=== PATIENT | male | born 1975 | race Caucasian/White ===

== ENCOUNTER 2018-08-01 20:14 | Emergency (ER) | payer OTHER, SELFPAY ==
[2018-08-01 20:15] VITALS: BP 129/90; PULSE 75; RESP 16; TEMP 36.6; O2SAT 98; BMI 30.2
--- NOTE | 2018-08-01 20:39 | EKG12_ITS ---
Test Reason : LOWER EXTREMITY PAIN Blood Pressure : / mmHG Vent. Rate : 071 BPM Atrial Rate : 071 BPM P-R Int : 194 ms QRS Dur : 104 ms QT Int : 388 ms P-R-T Axes : 010 028 018 degrees QTc Int : 421 ms Normal sinus rhythm Normal ECG Confirmed by CHOLO LEAVITT MD ([id number]), scientific editor AKILA MEJÍA ([id number] on 08/04/2018 10:57:27 AM Referred By: GAYATRI Confirmed By:CHOLO LEAVITT MD
--- NOTE | 2018-08-01 20:40 | CT_ITS ---
STUDY: CTA CHEST REASON FOR EXAM: Male, 43 years old. Bilateral lower extremity pain. Lower abdominal pain. Groin pain. RADIATION DOSAGE (If Supplied By Facility): CTDIvol = ( 17.15 ) mGy, DLP = ( 1572.24 ) mGycm TECHNIQUE: The examination was performed with the intravenous administration of 100ml ml of Isovue 370 contrast material. Post-processing of the angiographic images was performed, with multiplanar reformation and 3D reconstruction. Individualized dose optimization techniques were used for this CT. COMPARISON: None. FINDINGS: CTA CHEST: The heart and pericardium are normal. The aorta is normal in caliber, with no aneurysm or dissection. There is no evidence of pulmonary embolus. There is no mediastinal mass, adenopathy, or hematoma. There is no pleural effusion or pneumothorax. There is no pulmonary consolidation. Lung chowdary are clear. There is no osseous abnormality. CTA ABDOMEN PELVIS: The liver, spleen, pancreas, adrenal glands, and kidneys are unremarkable. Gallbladder is unremarkable. Aorta and iliac arteries are normal, with no aneurysm or dissection. There is no free fluid, free air, or organized collection. Bladder is unremarkable. There is no bowel obstruction or inflammatory change. Normal appendix. There is no osseous abnormality. No evidence of fracture. CT/CTA Chest W/WO Contrast IMPRESSION: Negative enhanced CT of the chest, abdomen and pelvis. Electronically Signed: Rachele Lantigua MD at 22:36 EST Tel , Service support ,
--- NOTE | 2018-08-01 20:41 | CT_ITS ---
CTA ABDOMEN PELVIS WITH CONTRAST: REASON FOR EXAM: Male, 43 years old. Bilateral lower extremity pain. Lower abdominal pain. Groin pain. RADIATION DOSAGE (If Supplied By Facility): CTDIvol = ( 17.15 ) mGy, DLP = ( 1572.24 ) mGycm TECHNIQUE: The examination was performed with the intravenous administration of 100ml ml of Isovue 370 contrast material. Post-processing of the angiographic images was performed, with multiplanar reformation and 3D reconstruction. Individualized dose optimization techniques were used for this CT. COMPARISON: None. FINDINGS: CTA CHEST: The heart and pericardium are normal. The aorta is normal in caliber, with no aneurysm or dissection. There is no evidence of pulmonary embolus. There is no mediastinal mass, adenopathy, or hematoma. There is no pleural effusion or pneumothorax. There is no pulmonary consolidation. Lung chowdary are clear. There is no osseous abnormality. CTA ABDOMEN PELVIS: The liver, spleen, pancreas, adrenal glands, and kidneys are unremarkable. Gallbladder is unremarkable. Aorta and iliac arteries are normal, with no aneurysm or dissection. There is no free fluid, free air, or organized collection. Bladder is unremarkable. There is no bowel obstruction or inflammatory change. Normal appendix. There is no osseous abnormality. No evidence of fracture. CT/CT ANGIO ABD&PEL W/O&W/DYE IMPRESSION: Negative enhanced CT of the chest, abdomen and pelvis. Electronically Signed: Rachele Lantigua MD at 22:48 EST Tel , Service support ,
[2018-08-01] MEDS: Ondansetron 4 MG/2 ML Vial IV (21:27)
[2018-08-01] MEDS: 0.9% Normal Saline 1,000 ML 1000 ML IV (21:27)
[2018-08-01] MEDS: Morphine 4 MG/ML Syringe IV (21:29)
[2018-08-01 21:44] LABS: Absolute Lymphocyte Count 1.43 X10^3/ul (0.83-4.51); Absolute Neutrophil Count 5.1 X10^3/uL (2.0-7.7); Basophil# 0.03 X10^3/uL; Basophil% 0.4 % (0-1); Hematocrit 43.8 % (40-54); Hemoglobin 14.2 g/dl (13.0-16.5); Lymphocyte # 1.43 X10^3/ul (4.0); Lymphocyte % 18.9 % (19-41); Mean Corp Hgb Conc 32.4 g/gl (32-36); Mean Corpuscular Hgb 30.6 pg (27.0-32.0); Mean Corpuscular Volume 94.4 fL (80-94); Mean Platelet Vol. 11.6 fl (6.2-12.0); Monocyte# 0.65 X10^3/uL; Monocyte% 8.6 % (0-10); Neutrophil # 5.13 X10^3/uL (2.7-7.7); POSITIVE COUNT NO; POSITIVE DIFFERENTIAL NO; POSITIVE MORPHOLOGY NO; Platelet Count 202 K/mm3 (150-450); RBC Distribution Width CV 13.8 % (11.6-14.6); RBC Distribution Width SD 47.6 fl (35.1-43.9); Red Blood Count 4.64 M/mm3 (4.6-6.2); White Blood Count 7.6 K/mm3 (4.4-11.0)
[2018-08-01 21:55] LABS: Anion Gap 6 (5-15); BUN 17 mg/dL (7-18); BUN/Creat Ratio 17.2 RATIO (10-20); Calcium,Total 8.4 mg/dL (8.5-10.1); Chloride 104 mmol/L (98-107); Creatinine, Serum 0.99 mg/dL (0.70-1.30); D-Dimer Quantitative (DVT/PE) 0.27 FEU/ug/m (0.27-0.49); EST Glomerular Filtration Rate 88 mL/min (>60); Est Glom Filt Rate - Afr Amer 106 mL/min (>60); Estimated Creatinine Clearance 95.22 ml/min; Glucose 95 mg/dL (74-106); Potassium 3.8 mmol/L (3.5-5.1); Sodium Level 140 mmol/L (136-145)
[2018-08-01 22:04] LABS: Lactic Acid 0.8 mmol/L (0.4-2.0)
[2018-08-01 22:22] VITALS: BP 126/75; PULSE 65; RESP 12; O2SAT 99
[2018-08-01 22:23] LABS: Bacteria 0 SEEN /hpf (None Seen); Mucous, Urine 0 SEEN /hpf (<or=2+); Red Blood Cells-Urine 0 SEEN /hpf (0-5); Squamous Epithelial Cells - UA 0 SEEN /hpf (0-5); White Blood Cells 0 SEEN /hpf (0-5)
[2018-08-01] MEDS: 0.9% Normal Saline 1,000 ML 150 ML IV (22:23)
[2018-08-01 22:33] LABS: Color, Urine Yellow (Yellow); Glucose, Dipstick Normal (Normal); Ketone-Dipstick Negative (Negative); Leukocyte Esterase-Dipstick Negative /ul (Negative); Nitrite-Dipstick Negative (Negative); Occult Blood-Urine 10 /ul (Negative); Protein-Dipstick Negative (Negative); Urine Bilirubin Dipstick Negative (Negative); Urine Clarity Clear (Clear); Urine Urobilinogen Normal (Normal)
--- NOTE | 2018-08-01 23:15 | ED.VISSUMM ---
- ER Visit Summary Date of Service: 08/01/18 Chief Complaint: Bilateral leg pain History of Present Illness: The patient is a 43 M who reports having intermittent mid abdominal pain for a month or more. He had intermittent right testicular pain for the past month. He denies pain in those areas currently. He presents tonight with pain and spasms to both legs. He does report some mild back pain. He has not had any specific injury. Past history significant for asthma, hypertension, anxiety. Physical Examination: Vital signs are unremarkable. Patient's lying in bed. He appears uncomfortable. Head neck examination is normal. Heart is regular rate and rhythm. Lungs sounds are clear. Abdomen is soft and nontender. Hypoactive bowel sounds are noted. No masses are noted. Lower extreme examination was mild muscular tenderness throughout the bilateral thighs. He has present bilateral distal pulses. There is no edema. Normal skin coloration is noted. He has good range of motion of all joints. Test Results: EKG is sinus at 71 with no sign of acute ischemia. CBC and chemistry studies normal. Urinalysis normal. Lactate and d-dimer are both normal. CTA of the chest, abdomen, pelvis were obtained to rule out dissection. These are read as normal. Emergency Department Course and Treatment: Patient was given morphine, Zofran, and IV fluids. On repeat evaluation he is resting. He does report some continued pain in his legs, but overall improved. Test results were discussed with patient as well as family at bedside. He is given a prescription for oxycodone and Flexeril. He is to follow with his primary care physician next week and return to the ER if symptoms worsen or there are any new concerns arise. He voices understanding and agreement. Treatment Plan: [] Disposition: Discharge Impression: Muscle spasms bilateral legs This note was generated with [employer] dictation software. It may contain incorrect words, spelling, and punctuation that were not noted in review of the chart prior to signing ED Disposition - Plan for ED Patient: Disposition: Home or Assisted Living Chief Complaint: Lower Extremity Injury Instructions: ED Muscle Pain Leg Cramps Prescriptions: Oxycodone HCl/Acetaminophen [Percocet 5/325] 1 tablet PO Q6H PRN PRN 3 Days #12 tablet PRN Reason: Pain Cyclobenzaprine [Flexeril] 10 mg PO TID PRN #20 tablet PRN Reason: Muscle Spasm Referrals: Harley Paris MD [Primary Care Provider] - 5-7 Days
--- NOTE | 2018-08-01 23:18 | DCINST.ED_ITS ---
ED Disposition - Plan for ED Patient: Disposition: Home or Assisted Living Chief Complaint: Lower Extremity Injury Instructions: ED Muscle Pain Leg Cramps Prescriptions: Oxycodone HCl/Acetaminophen [Percocet 5/325] 1 tablet PO Q6H PRN PRN 3 Days #12 tablet PRN Reason: Pain Cyclobenzaprine [Flexeril] 10 mg PO TID PRN #20 tablet PRN Reason: Muscle Spasm Referrals: Harley Paris MD [Primary Care Provider] - 5-7 Days
[2018-08-01 23:22] VITALS: BP 113/70; PULSE 66; RESP 12; O2SAT 95
[2018-08-01] MEDS: oxyCODONE 5 MG Tablet PO (23:36)
== END 2018-08-01 23:43 | disposition home or self-care (01) ==
PROVIDERS: Emergency Provider Emergency Medicine; Family Provider Family Medicine; PCP Family Medicine
DX: M62.838 Other muscle spasm (principal); F41.9 Anxiety disorder, unspecified; I10 Essential (primary) hypertension; Z72.0 Tobacco use; Z79.899 Other long term (current) drug therapy
CPT/HCPCS: 71275; 74174; 80048; 81001; 83605; 85025; 85379; 93005; 96361; 96374; 96375; 99284; J7030; Q9967; A4216; J2405

== ENCOUNTER 2019-09-19 13:15 | Emergency (ER) | payer OTHER, SELFPAY ==
[2019-09-19 13:16] VITALS: BP 122/27; PULSE 65; RESP 14; TEMP 36.7; O2SAT 97; BMI 31.5
--- NOTE | 2019-09-19 13:27 | RAD_ITS ---
STUDY: X-RAY - LEFT HAND REASON FOR EXAM: Male, 44 years old. laceration between middle and fourth fingers at base of digits TECHNIQUE: 3 view(s) of the hand. COMPARISON: None. FINDINGS: Normal radiocarpal articulation. Normal distal radioulnar joint. Normal visualized carpal bones. Normal carpal articulations Normal carpometacarpal articulation of the thumb. Normal second through fifth carpometacarpal joints. Normal metacarpi. Normal metacarpophalangeal joint of the thumb. Normal interphalangeal joint of the thumb. Normal proximal and distal phalanges of the thumb. Normal metacarpophalangeal joints of the second through fifth fingers. Normal proximal and distal interphalangeal joints of the second through fifth fingers. Normal phalanges of the second through fifth fingers. There is no acute fracture. There is soft tissue injury. There is no foreign body. RAD/Hand Min 3 Views IMPRESSION: Soft tissue injury. No fracture or radiopaque foreign body. Electronically Signed: Brando Gupta MD at 14:25 EST , Service support ,
--- NOTE | 2019-09-19 13:28 | ED.DCSUM_ITS ---
- ER Visit Summary Date of Service: 09/19/19 Chief Complaint: Left hand laceration History of Present Illness: The patient is a 44 M who sustained a left hand laceration about an hour ago. He states that struck his hand between the third and fourth finger. He has a laceration in the webspace between these fingers. He has pain that is worse with movement. His last tetanus is unknown. He denies any other injuries. Physical Examination: Vital signs reviewed. Left hand exam reveals some tenderness to the third and fourth digits on the left hand. He has painful range of motion. There is a 2 cm laceration in the webspace between the third and fourth fingers. Minimal bleeding at this time. Test Results: Left hand x-ray interpreted by myself reveals no evidence of fracture Emergency Department Course and Treatment: The patient's tetanus was updated. The laceration was repaired with 4, 4-0 nylon sutures. He will have these out in 7 to 10 days. He will keep this area clean and dry. Treatment Plan: [] Disposition: Discharge Impression: Left hand laceration, 2 cm Laceration repair This note was generated with [employer] dictation software. It may contain incorrect words, spelling, and punctuation that were not noted in review of the chart prior to signing ED Disposition - Plan for ED Patient: Disposition: Home or Assisted Living Instructions: LACERATION, All Referrals: Stephanie Agosto DO [Primary Care Provider] -
[2019-09-19] MEDS: Diphth,Pertuss(Acell),Tet Vac 0.5 ML Vial IM (13:37)
[2019-09-19 14:06] VITALS: RESP 16
== END 2019-09-19 14:07 | disposition home or self-care (01) ==
LOC: ED 13:59
PROVIDERS: Emergency Provider Emergency Medicine; Family Provider Family Medicine; PCP Internal Medicine
DX: S61.412A Laceration without foreign body of left hand, initial encounter (principal); W22.8XXA Striking against or struck by other objects, initial encounter; Y93.9 Activity, unspecified; I10 Essential (primary) hypertension; F32.9 Major depressive disorder, single episode, unspecified; Z72.0 Tobacco use
CPT/HCPCS: 12001; 73130; 90471; 90715; 99284

== ENCOUNTER → 2020-02-23 13:33 | Outpatient (REF) | payer SELFPAY ==
--- NOTE | 2020-02-23 13:41 | CT_ITS ---
STUDY: CARDIAC CALCIUM SCORING - CT CHEST- ADDENDUM REASON FOR EXAM: Assess pulmonary parenchyma and mediastinal structures. RADIATION DOSAGE (If Supplied By Facility): CTDIvol = ( 12.19 ) mGy, DLP = ( 195.04 ) mGycm Individualized dose optimization techniques were used for this CT. ? TECHNIQUE: Axial non-enhanced images were acquired through the heart for the sole purpose of measuring coronary artery calcium. A field of view limited from the base of the heart to the upper abdomen was reviewed to assess the lung parenchyma and soft tissues. COMPARISON: None. FINDINGS: The parenchymal windows with limited field of view show no signs of an acute infiltrate or pulmonary mass. There are no effusions. The visualized segments of the primary bronchi are clear. The mediastinal windows with limited [id number] show no signs of hilar or mediastinal adenopathy. There is no discrete chest wall mass. The visualized segments of the upper abdominal viscera are unremarkable. CT/Limited Chest CT w/CCTA IMPRESSION: No acute process or pulmonary mass. Electronically Signed: Juliocesar Tao MD at 19:12 EDT , Service support ,
[2020-02-23 13:57] VITALS: BP 127/64; PULSE 56; RESP 16; O2SAT 97; BMI 29.7
--- NOTE | 2020-02-23 14:35 | CA.SCORE ---
Calcium Scoring Date of Study:: 02/23/20 Coronary Calcium Scoring: High-resolution Computed Tomographic imaging of the chest was performed on 02/23/2020 with particular attention paid to the coronary arteries. Images from the examination were analyzed for the presence and extent of coronary artery calcification , using coronary calcium quantification software. The patient tolerated the procedure well and there were no complications. The results of the coronary calcification analysis are provided below. - Findings Left Main (LM): 0 Left Anterior Descending (LAD): 0 Left Circumflex (LCX): 0 Right Coronary Artery (RCA): 15.1 Total Agatston Score: 15.1 Percentile Ranking: Percentile ranking: According to pre-published reference information between 50% and 75% of people of the same gender/similar age had the same/lower scores. Calcium Scoring Interpretation: 0 No identifiable atherosclerotic plaque. Very low cardiovascular disease risk. <5% chance of presence coronary artery disease A Negative Examination 1-10 Minimal Plaque burden. Significant coronary artery disease very unlikely. 11-100 Mild plaque burden. Likely mild or minimal coronary atherosclerosis. 101-400 Moderate plaque burden Moderate non-obstructive coronary artery disease highly likely. Over 400 Extensive plaque burden. High likelihood of at least one significant coronary stenosis (>50% diameter) Calcium Score: 11 - 100 Likely mild or minimal coronary stenosis - Continue cardiovascular risk factor evaluation as deemed appropriate.
== END ==
LOC: CT 13:33
PROVIDERS: PCP Internal Medicine; Visit Provider Nurse Practitioner
DX: E78.00 Pure hypercholesterolemia, unspecified (principal)
CPT/HCPCS: 75571; 76380

== ENCOUNTER 2020-06-03 15:32 | Observation (INO) | payer OTHER, SELFPAY ==
[2020-02-23 13:57] VITALS: BMI 29.7
[2020-06-03] VITALS (9 sets, daily range): BP systolic 111–144; BP diastolic 66–81; PULSE 55–62; RESP 14–18; TEMP 36.6–37; O2SAT 93–98; BMI 31.1; BMI 31.2; BMI 28.7
--- NOTE | 2020-06-03 15:56 | EKG12_ITS ---
Test Reason : SYNCOPE Blood Pressure : / mmHG Vent. Rate : 058 BPM Atrial Rate : 058 BPM P-R Int : 186 ms QRS Dur : 104 ms QT Int : 412 ms P-R-T Axes : 026 022 025 degrees QTc Int : 404 ms Sinus bradycardia Otherwise normal ECG Confirmed by DAGMAR AMAYA, CHOLO ([id number]), newspaper photo editor ANGELO LERMA ([id number]) on 06/08/2020 8:37:28 AM Referred By: Confirmed By:CHOLO LEAVITT MD
--- NOTE | 2020-06-03 16:06 | CT_ITS ---
STUDY: CT BRAIN WITHOUT CONTRAST REASON FOR EXAM: Male, 45 years old. HEADACHE X 1 WK, SYNCOPE X 2 RADIATION DOSAGE (If Supplied By Facility): CTDIvol = ( 44.99 ) mGy, DLP = ( 812.98 ) mGycm TECHNIQUE: Transaxial CT imaging of the brain was performed without administration of intravenous contrast material. Individualized dose optimization techniques were used for this CT. COMPARISON: None. FINDINGS: Normal soft tissue structures. Normal calvarium. No hydrocephalus. Normal size ventricles and extra-axial spaces for the patient''s age. Normal white matter tracts of the cerebral hemispheres. Normal basal ganglia and thalami. Normal brainstem. Normal cerebellum. There is no intracranial hemorrhage. There are no findings of an acute ischemic infarction. Normal visualized paranasal sinuses. CT/Brain/Head without Contrast IMPRESSION: No demonstrated acute or significant intracranial process. Electronically Signed: Juliocesar Tao MD at 16:46 EDT , Service support ,
--- NOTE | 2020-06-03 16:08 | ED.VIS.GEN ---
History of Present Illness Chief Complaint: Syncope Informant: Patient Narrative: Patient is a 45-year-old male who presents to the emergency department for syncopal episodes. He has had 3 episodes over the past week. States that this comes on at random times. He does not know what aggravates his symptoms. Today his last episode occurred at his doctor's office so they called an ambulance for him. Prior to getting symptoms he feels nauseous, sweaty and loses consciousness. He is not sure how long he goes out for. Prior to the past week he has never had this before. He denies any chest pain but sometimes gets some chest tightness. Denies any shortness of breath. No palpitations. Denies any recent illnesses including any cough, cold, congestion. No fevers or chills. He did have a few episodes of loose stool. Has had some generalized mild abdominal pain with this. No urinary symptoms. Believes he has had some mild swelling over his lower extremities bilaterally. He has no history of heart attacks, strokes or DVT/PE. He is a current every day smoker. He did have one episode while driving. Does not occur when moving from a sitting to standing position. He has had a headache over the past week. He has been taking Excedrin for this which has not given him any relief. He does have a history of headaches in the past but this feels different to him. He denies any vision changes. Currently rates the headache as a 7 out of 10 diffuse. Past Medical History - Allergies and Home Meds Allergies/Adverse Reactions: Allergies No Known Allergies Allergy (Verified 06/03/20 15:33) Prior records reviewed: Yes Past Medical History: - - Hyperlipidemia, depression Smoking Status: Current every day smoker Alcohol: Occasional Drugs: None - Family History Maternal Family History: Reports: No pertinent history Paternal Family History: Reports: No pertinent history Review of Systems All systems negative except as indicated General: Denies: Chills, Fever, Sweats Eyes: Denies: Visual changes - bilaterally, Diplopia ENT: Denies: Rhinorrhea, Sore throat Cardiovascular: Denies: Chest pain, Palpitations Respiratory: Denies: Dyspnea, Cough, Dyspnea on exertion Gastrointestinal: Reports: Abdominal pain, Nausea, Diarrhea. Denies: Vomiting, Melena, Hematochezia Genitourinary: Denies: Dysuria, Hematuria, Frequency Musculoskeletal: Denies: Back pain, Extremity Pain Skin: Denies: Rash, Wounds Neurological: Reports: Headache. Denies: Weakness, Numbness Physical Exam Vital Signs/Narrative: Vital Signs Temp Pulse Resp BP Pulse Ox 06/03/20 16:03 98 06/03/20 15:33 97.9 F 62 18 144/81 H 95 Inital Vital Signs reviewed: Yes General: Well nourished, Well developed, No Acute Distress Head: Normocephalic, Atraumatic Eyes: Perrl, EOMI ENT: Moist mucous membranes, No rhinorrhea Neck: Supple, Nontender Cardiovascular: Regular rate, Regular rhythm, No murmurs Respiratory: No distress, CTA bilaterally, Chest nontender Abdomen: Soft, Nontender, Nondistended, Normal bowel sounds Back: Nontender, Normal Inspection Extremities: Nontender, No edema. Negative for: Calf Tenderness Skin: Normal color, No rash Neurological: Alert, Oriented x3, Cranial nerves II-XII grossly intact, Normal Strength, Normal Sensation Psychological: Normal affect, Normal Mood Diagnostic/Tx/Re-eval - EKG Initial EKG Interpretation: - - Rate of 58 bpm in sinus bradycardia. Normal intervals. Normal axis. No ST elevations or depressions appreciated. No T wave abnormalities. - Medical Decision Making Patient presents to the emergency department for repeat syncopal episodes. He has been having a headache with this. Upon arrival to the emergency department vital signs within normal limits. He does not appear in any acute distress. Will check basic lab work, EKG, chest x-ray and CT scan of his head. Work-up did not reveal any significant acute abnormality. His orthostatic vitals were taken at the PCPs office today and were negative. I do not have explanation for what is causing his syncopal episode so we will bring him into the hospital for further evaluation and management. He understands and is agreeable this plan. He otherwise has been stable throughout ED stay. ED Disposition - Plan for ED Patient: Disposition: Acute Care Hospital [facility] Diagnosis: Syncopal episodes
--- NOTE | 2020-06-03 16:10 | RAD_ITS ---
STUDY: X-RAY CHEST REASON FOR EXAM: Male, 45 years old. CHEST PAIN, CORTEZ, SYNCOPE TECHNIQUE: Single AP portable view of the chest. COMPARISON: None. FINDINGS: The lungs are clear and expanded. There is no demonstrated pleural abnormality. Normal size heart. Normal mediastinum and maverick. Normal visualized pulmonary arteries. Normal visualized aortic arch and descending thoracic aorta. Normal visualized thoracic spine. Normal visualized ribs, clavicles, and shoulders. There is no demonstrated abnormality of the visualized soft tissue structures of the upper abdomen. RAD/Chest 1 View (Portable) IMPRESSION: Normal x-ray examination of the chest. Electronically Signed: Juliocesar Tao MD at 17:21 EDT , Service support ,
[2020-06-03 16:15] LABS: Absolute Lymphocyte Count 1.58 X10^3/uL (0.83-4.51); Basophil# 0.03 X10^3/uL; Basophil% 0.4 % (0-1); Eosinophil# 0.21 X10^3/uL; Eosinophils% 2.8 % (0-5); Hematocrit 48.2 % (40-54); Hemoglobin 15.7 g/dL (13.0-16.5); Lymphocyte # 1.58 X10^3/ul (4.0); Lymphocyte % 20.9 % (19-41); Mean Corp Hgb Conc 32.6 g/dL (32-36); Mean Corpuscular Hgb 30.6 pg (27.0-32.0); Mean Platelet Vol. 11.6 fl (6.2-12.0); Monocyte# 0.72 X10^3/uL; Monocyte% 9.5 % (0-10); NRBC Flagged by Analyzer 0 % (0-5); Neutrophil % 66.1 % (47-70); Platelet Count 239 K/mm3 (150-450); RBC Distribution Width CV 13.2 % (11.6-14.6); RBC Distribution Width SD 45.9 fl (35.1-43.9); Red Blood Count 5.13 M/mm3 (4.6-6.2); White Blood Count 7.6 K/mm3 (4.4-11.0)
[2020-06-03 16:23] LABS: Anion Gap 4 (5-15); BUN 19 mg/dL (7-18); BUN/Creat Ratio 21.4 RATIO (10-20); Calcium,Total 9.4 mg/dL (8.5-10.1); Chloride 106 mmol/L (98-107); Creatinine, Serum 0.89 mg/dL (0.70-1.30); EST Glomerular Filtration Rate 98 mL/min (>60); Est Glom Filt Rate - Afr Amer 119 mL/min (>60); Estimated Creatinine Clearance 100.34 ml/min; Glucose 96 mg/dL (74-106); Magnesium 2.2 mg/dL (1.6-2.6); Potassium 3.9 mmol/L (3.5-5.1); Sodium Level 141 mmol/L (136-145)
--- NOTE | 2020-06-03 18:31 | HP.PCM_ITS ---
History of Present Illness Date of Admission: 06/03/20 Chief Complaint: syncope The patient is a 45 year old M with a PMH as outlined who was admitted via the ED on 06/03/2020 with a complaint of syncope. he has had 3 episodes of syncope over the last few days. He has no clear precipitating factors for the syncopal attacks but does admit to prodromal nausea and sweatiness before the syncopal episodes. He says he usually has been sitting for a while and gets the prodromal symptoms when he stands up and then passes out. He is not sure how long he is usually out for, though his who witnessed him passing out today said he passed out for just a few seconds. His last episode occurred today at his PCPs office and so the squad was called and he was brought here. He denies any chest tightness, shortness of breath or palpitations. He has had some few episodes of loose stool but has no other symptoms. His , patient has not been eating and drinking well. 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 Review of symptoms otherwise negative. Vitals in the ED showed temperature of 91.9 Fahrenheit with blood pressure of 117/78 and pulse rate of 57 with respiratory to 14. He was saturating 98% on room air. Chemistry was unremarkable initial troponin was negative. CBC essentially unremarkable. X-ray showed no acute cardiopulmonary process and EKG showed sinus bradycardia with rate of 50 bpm but no acute ST changes. CT of the brain showed no acute intracranial pathology and this was done on account of complaint of headache. He has been admitted to be managed for syncope. [] Past Medical History Allergies No Known Allergies Allergy (Verified 06/03/20 15:33) Home Medications: Ambulatory Orders Medication Instructions Recorded Atenolol [Tenormin] 25 mg PO QHS 08/01/18 Omeprazole Magnesium [Prilosec Otc] 20 mg PO DAILY 06/03/20 Paroxetine [Paxil] 20 mg PO DAILY 06/03/20 Rosuvastatin Calcium [Crestor] 5 mg PO QODAY 06/03/20 Lives: Spouse/ Significant Other Smoking Status: Current every day smoker Alcohol: Occasional Drugs: None - *Family History Maternal History Items: No pertinent history Paternal History Items: No pertinent history Review of Systems Constitutional: Denies: Chills, Fever, Malaise, Weakness, Weight Change Eyes: Denies: Blurred vision HEENT: Denies: Head Aches, Sinus Congestion, Sinus Drainage Cardiovascular: Reports: Syncope. Denies: Chest Pain, Heaviness, Light Headedness, Palpitations Respiratory: Denies: Cough, Shortness of Breath, Shortness of breath at rest, Shortness of breath upon exertion, Sputum production Gastrointestinal: Denies: Abdominal Pain, Nausea, Vomiting Genitourinary: Denies: Dysuria Musculoskeletal: Denies: Joint Pain, Joint Tenderness Skin: Denies: Rash, Wounds Neurological: Denies: Numbness, Tingling, Focal weakness Psychiatric: Denies: Anxiety, Depression, Homicidal Ideations, Suicidal Ideations Hematologic/ Lymphatic: Denies: Easy Bruising, Easy Bleeding VTE Information - Inpt Only VTE Present on Admission: No VTE Pharm Prophylaxis ordered?: Yes - Physical Exam Vitals/I&O's: Vital Signs Temp Pulse Resp BP Pulse Ox 97.9 F 60 17 120/80 98 06/03/20 15:33 06/03/20 17:44 06/03/20 17:44 06/03/20 17:44 06/03/20 16:03 Oxygen Delivery Method Room Air Weight: 205 lb Body Mass Index (BMI) 31.1 General: Alert, Oriented x3, Cooperative, No apparent distress HEENT: Atraumatic, PERRLA, EOMI, Normocephalic Oral: Moist Mucosa Neck: Supple, No JVD, Negative Carotid Bruits Lungs: Clear to auscultation, Normal air movement, No rhonchi, No wheeze, No rales Cardiovascular: Regular Rhythm, Normal S1, Normal S2, No murmurs, Bradycardic Abdomen: Bowel Sounds Present, Soft, Non Tender Extremities: No clubbing, No cyanosis, No edema, Capillary Refill Less than 3 Seconds Skin: No rashes, No breakdown Musculoskeletal: No Tenderness to Palpation of Joints or Extremities Lymphatic: No Cervical, Supraclavicular, or Inguinal Adenopathy Neurological: Cranial nerves II-XII grossly intact, Neuro grossly intact, Motor Exam 5/5 strength throughout Psych/Mental Status: Normal Affect, Appropriate, Alert and oriented to time, place, person, mood and affect Laboratory Results 06/03/20 15:22: WBC 7.6, RBC 5.13, Hgb 15.7, Hct 48.2, MCV 94.0, MCH 30.6, MCHC 32.6, RDW Std Deviation 45.9 H, RDW Coeff of Isabel 13.2, Plt Count 239, MPV 11.6, Immature Gran % (Auto) 0.300, Neut % (Auto) 66.1, Lymph % (Auto) 20.9, Franklin % (Auto) 9.5, Eos % (Auto) 2.8, Baso % (Auto) 0.4, Absolute Neuts (auto) 5.0, Absolute Lymphs (auto) 1.58, Nucleated RBC % 0 06/03/20 15:22: Sodium 141, Potassium 3.9, Chloride 106, Carbon Dioxide 31.0, Anion Gap 4 L, BUN 19 H, Creatinine 0.89, Estim Creat Clear Calc 100.34, Est GFR (MDRD) Af Amer 119, Est GFR (MDRD) Non-Af 98, BUN/Creatinine Ratio 21.4 H, Glu cose 96, Calcium 9.4, Magnesium 2.2, Troponin I < 0.[address] 06/03/20 16:06 IMPRESSION: No demonstrated acute or significant intracranial process. Electronically Signed: Juliocesar Tao MD at 16:46 EDT , Service support , Chest X-Ray 06/03/20 16:10 IMPRESSION: Normal x-ray examination of the chest. Electronically Signed: Juliocesar Tao MD at 17:21 EDT , Service support , Assessment/Plan 45-year-old admitted with a complaint of syncope #Syncope * likely due to vasovagal syncope vs orthostatic hypotension, and bradycardia may also be contributing * Admit to PCU with telemetry * Check orthostatics. * Hydrate gently with IV fluids. * PT OT consult. For 2D echo tomorrow. * For precautions. * On atenolol. Will hold this. * #Hyperlipidemia: On Crestor. Will continue. #Hypertension: * Hold atenolol on account of bradycardia and syncope. says he has been taking atenolol o/.a of migraines, though his says it is because of his hypertension. * IV hydralazine prn #Migraines: give IV ketorolac prn DVT prophylaxis; SCDs CODE STATUS: Full code * Patient counseled extensively about different types of CODE STATUS including full code, DNR CCA and DNR CCA. Patient elects to be full code. * Total [id number] time 16 minutes. OBSV E&M: 39185 Initial observation care L2 Procedures: 63669 Advncd Care Plan 30 Min
[2020-06-03] MEDS: Ketorolac 30 MG/ML Syringe IV (18:45)
[2020-06-03] MEDS: 0.9% Saline Lock 10 ML Syringe IV (20:12)
[2020-06-03] MEDS: 0.9% Normal Saline 1,000 ML 150 ML IV (20:27)
[2020-06-03] MEDS: Atorvastatin Calcium 10 MG Tablet PO (23:17)
[2020-06-04] MEDS: 0.9% Normal Saline 1,000 ML 150 ML IV (03:06)
[2020-06-04 03:08] VITALS: PULSE 53
[2020-06-04] MEDS: Ketorolac 30 MG/ML Syringe IV (04:10)
[2020-06-04 04:15] VITALS: BP 101/57; PULSE 56; RESP 16; TEMP 36.8; O2SAT 94
[2020-06-04 04:18] VITALS: BP 101/57; BP 122/73; BP 126/81; PULSE 51; PULSE 55; PULSE 61
--- NOTE | 2020-06-04 05:55 | ECHOD_ITS ---
Reason For Study: Syncope Procedure This was a 2D Doppler, Color Flow transthoracic echocardiogram. Exam performed portable in patient room. Left Ventricle Normal left ventricle. The estimated ejection fraction is 65 %. No regional wall motion abnormalities noted. Right Ventricle Normal right ventricle. Normal systolic function. Atria Normal left atrium. Normal right atrium. Mitral Valve The mitral valve is structurally normal. No prolapse or stenosis seen. No mitral valve insufficiency. Tricuspid Valve Normal tricuspid valve. No eccentric tricuspid valve insufficiency. Aortic Valve Trivial aortic valve insufficiency. Great Vessels Normal inferior vena cava. Inferior vena cava collapse with respiration. Pericardium/Pleural No pericardial effusion. MMode/2D Measurements & Calculations LVIDd: 5.2 cm IVSd: 1.3 cm Ao root diam: 3.1 cm LVIDs: 2.9 cm LVPWd: 1.1 cm RVDd: 4.0 cm FS: 42.9 % LAV(MOD-bp): 40.0 ml LVAd ap4: 27.1 cm2 SV(MOD-sp4): 48.6 ml LAV(MOD-bp) Indexed: 18.9 ml/m2 EDV(MOD-sp4): 71.3 ml LAV(MOD-sp2): 38.6 ml EDV(sp4-el): 74.8 ml LAV(MOD-sp4): 42.0 ml LVAs ap4: 13.5 cm2 ESV(MOD-sp4): 22.7 ml ESV(sp4-el): 22.5 ml EF(MOD-sp4): 68.1 % EF(sp4-el): 69.9 % SV(sp4-el): 52.2 ml LA dimension(2D): 4.1 cm LA A4 area: 16.0 cm2 RA A4 area: 14.3 cm2 Doppler Measurements & Calculations MV E max ld: 109.1 cm/sec Lat Peak E' Ld: 12.2 cm/sec Med Peak E' Ld: 9.9 cm/sec MV A max ld: 66.1 cm/sec E/E' lat: 8.9 E/E' med: 11.0 MV E/A: 1.7 Ao V2 max: 158.5 cm/sec LV V1 max: 128.5 cm/sec PA V2 max: 106.9 cm/sec Ao max P.1 mmHg LV V1 max P.6 mmHg Ao V2 mean: 112.6 cm/sec Ao mean P.6 mmHg Ao V2 VTI: 35.6 cm TR max ld: 230.7 cm/sec TR max P.3 mmHg Interpretation Summary The estimated ejection fraction is 65 %. Normal left ventricle. No regional wall motion abnormalities noted. No significant valvular leision Ordering Physician: Faina Falcon Referring Physician: Stephanie Agosto Performed By: Pretty Garsia, ISAK, RVT
[2020-06-04 06:57] VITALS: PULSE 58
[2020-06-04 07:45] LABS: Absolute Lymphocyte Count 1.48 X10^3/uL (0.83-4.51); Absolute Neutrophil Count 4.8 X10^3/uL (2.0-7.7); Basophil# 0.02 X10^3/uL; Basophil% 0.3 % (0-1); Eosinophils% 2.8 % (0-5); Hematocrit 43.9 % (40-54); Hemoglobin 13.9 g/dL (13.0-16.5); Lymphocyte # 1.48 X10^3/ul (4.0); Lymphocyte % 20.4 % (19-41); Mean Corp Hgb Conc 31.7 g/dL (32-36); Mean Corpuscular Hgb 29.6 pg (27.0-32.0); Mean Corpuscular Volume 93.6 fL (80-94); Mean Platelet Vol. 11.2 fl (6.2-12.0); Monocyte# 0.73 X10^3/uL; NRBC Flagged by Analyzer 0 % (0-5); Neutrophil # 4.81 X10^3/uL (2.7-7.7); Neutrophil % 66.1 % (47-70); Platelet Count 191 K/mm3 (150-450); RBC Distribution Width CV 13.4 % (11.6-14.6); RBC Distribution Width SD 46.5 fl (35.1-43.9); Red Blood Count 4.69 M/mm3 (4.6-6.2); White Blood Count 7.3 K/mm3 (4.4-11.0)
[2020-06-04 08:02] LABS: Anion Gap 4 (5-15); BUN 21 mg/dL (7-18); BUN/Creat Ratio 20.6 RATIO (10-20); Calcium,Total 8.3 mg/dL (8.5-10.1); Chloride 110 mmol/L (98-107); Creatinine, Serum 1.02 mg/dL (0.70-1.30); EST Glomerular Filtration Rate 84 mL/min (>60); Est Glom Filt Rate - Afr Amer 101 mL/min (>60); Estimated Creatinine Clearance 93.44 ml/min; Glucose 104 mg/dL (74-106); Potassium 3.8 mmol/L (3.5-5.1); Sodium Level 142 mmol/L (136-145)
[2020-06-04 09:54] VITALS: BP 111/67; PULSE 70; RESP 18; TEMP 36.9; O2SAT 94
[2020-06-04] MEDS: Pantoprazole Sodium 20 MG Tablet PO (10:01)
--- NOTE | 2020-06-04 10:01 | DCINST_ITS ---
- Discharge Diagnoses Current Active Problems: Current Active and Chronic Problems Syncopal episodes (Acute) You will use the following diet at home:: Cardiac Your food should be the consistency of: Regular Discharge Activity: May Not Drive - while having headache. F/U PCP before resuming driving Weight Bearing Status: Weight bearing as tolerated Call your doctor if you observe: Fever of 101 or Higher, Coldness, Increased Pain, Numbness or Tingling, Change in Color, Inability to urinate, Inability to have a bowel movement, Shortness of breath, Dizziness, Fainting spells, Swelling in the ankles, Chest pain, Prolonged hiccoughing, Increased palpitations (irregular heartbeat), Calf discomfort, Uncontrolled pain Allergies/Adverse Reactions: Allergies No Known Allergies Allergy (Verified 06/03/20 15:33) Medications to take at Discharge Omeprazole Magnesium [Prilosec Otc] 20 mg PO DAILY 06/03/20 Paroxetine [Paxil] 20 mg PO DAILY 06/03/20 Rosuvastatin Calcium [Crestor] 5 mg PO QODAY 06/03/20 Atenolol [Tenormin] 25 mg PO QHS #0 06/04/20 Primary Care Physician: Stephanie Agosto DO [Primary Care Provider] - Please follow up with your Primary Care Physician in: in 2 weeks Test Results: Test results from this visit will be discussed in further detail at your follow- up appointment, if applicable.
--- NOTE | 2020-06-04 10:02 | PCM.DC.SUM ---
Discharge Date and Diagnosis - Problem List Patient Problems: Active and Suspected Problems Syncopal episodes (Acute) Date of Admission: 06/03/20 Date of Discharge: 06/04/20 - Primary Discharge Diagnosis Acute Problems: Active Problems Syncopal episodes (Acute) Syncope most likely secondary to vasovagal episode or dehydration from diarrhea Hospital Course and Treatment Imaging Results: 06/04/20 05:55 Echo Complete [ECHO] AM (NON MEDS) Summary of Care Provided: The patient is a 45 year old M was admitted to PCU with complaint of syncope. He had 2 near syncope episode and third 1 he passed out.. Was found to be dizzy and lightheaded in PCP office was sent to ER. No chest pain or tightness or shortness of breath. Before passing out, he felt nauseated and sweating. He also had spontaneous diarrhea about 5-10 times per day for few days and was taking Imodium for that. EKG sinus bradycardia at 50 bpm with no acute ST-T changes. Repeat EKG is also similar. CT brain shows no acute intracranial pathology. 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 Orthostatic vitals were negative. Patient was hydrated. 2D echo was done and reported normal with EF 65% normal LV and no regional wall motion abnormalities. No significant valvular lesions. Patient is discharged home. Discharge medication reconciliation done. Discharge follow-up instructions completed. Discharge process discussed with the patient and all questions were answered to patient's satisfaction. Total time spent, exact 35 minutes on discharge meds reconciliation, examination, coordination of care with nurses and ancillary staff, review of imaging and blood test and discussion with the patient on follow-up instructions Patient Problems: Active and Suspected Problems Syncopal episodes (Acute) Objective: Seen and examined. quality assurance monitor body shows normal sinus rhythm. Heart rate in 50s. Last 175 blood. Blood pressure controlled. Patient complain of headache I think most probably is due to change of shift. 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 He is on nadolol 25 mg at bedtime for headache as per the patient although denies history of migraine/cluster headache. Physical exam General: Alert, Oriented x3, Cooperative HEENT: Atraumatic, PERRLA, EOMI, Normocephalic Oral: No Gingival or Mucosal Lesions/ Ulcerations Neck: Supple, No JVD, Negative Carotid Bruits Lungs: Air entry equal in bilateral lungs. No crepitation/rhonchi Cardiovascular: Regular rate, Regular Rhythm, Normal S1, Normal S2, No murmurs Abdomen: Bowel Sounds Present, Soft, Non Tender, Non-Distended : No renal angle tenderness. No suprapubic tenderness. Extremities: No edema, Capillary Refill Less than 3 Seconds Skin: No rashes, No breakdown Musculoskeletal: No Tenderness to Palpation of Joints or Extremities Neurological: Cranial nerves II-XII grossly intact, Deep Tendon Reflexes 2+/4 and Symmetrical, Neuro grossly intact Psych/Mental Status: Normal Affect, Appropriate. - Physical Exam Vitals/I&O's: Vital Signs Temp Pulse Resp BP Pulse Ox 98.5 F 70 18 111/67 94 06/04/20 09:54 06/04/20 09:54 06/04/20 09:54 06/04/20 09:54 06/04/20 09:54 Oxygen Delivery Method Room Air Weight: 200 lb 2.876 oz Body Mass Index (BMI) 28.7 Orthostatic Vital Signs Start: 06/03/20 20:00 Freq: q24h Status: Active Protocol: Activity Type Activity Date Activity User E-Sign Co-Sign Detail Recorded Client Recorded Date Recorded By Document 06/04/20 04:18 [facility] [id number] 06/04/20 04:22 [facility] 06/04/20 04:18 Orthostatic Vitals Standing -Blood Pressure (90/60-120/80) 122/73 H -Extremity Use Right Arm -Pulse Rate (60-100) 61 Sitting -Blood Pressure (90/60-120/80) 126/81 H -Extremity Use Right Arm -Pulse Rate (60-100) 55 L Lying -Blood Pressure (90/60-120/80) 101/57 L -Extremity Use Right Arm -Pulse Rate (60-100) 51 L Intake and Output for Last 24 Hours 06/02/20 06/03/20 06/04/20 23:59 23:59 23:59 Intake Total 180 / 180 2237.5 / 2237.5 Balance 180 / 180 2237.5 / 2237.5 Laboratory Results 06/03/20 15:22: WBC 7.6, RBC 5.13, Hgb 15.7, Hct 48.2, MCV 94.0, MCH 30.6, MCHC 32.6, RDW Std Deviation 45.9 H, RDW Coeff of Isabel 13.2, Plt Count 239, MPV 11.6, Immature Gran % (Auto) 0.300, Neut % (Auto) 66.1, Lymph % (Auto) 20.9, Rosebud % (Auto) 9.5, Eos % (Auto) 2.8, Baso % (Auto) 0.4, Absolute Neuts (auto) 5.0, Absolute Lymphs (auto) 1.58, Nucleated RBC % 0 06/03/20 15:22: Sodium 141, Potassium 3.9, Chloride 106, Carbon Dioxide 31.0, Anion Gap 4 L, BUN 19 H, Creatinine 0.89, Estim Creat Clear Calc 100.34, Est GFR (MDRD) Af Amer 119, Est GFR (MDRD) Non-Af 98, BUN/Creatinine Ratio 21.4 H, Glucose 96, Calcium 9.4, Magnesium 2.2, Troponin I < 0.015 06/03/20 19:37: Troponin I < 0.015 06/03/20 22:25: Troponin I < 0.015 06/04/20 07:11: WBC 7.3, RBC 4.69, Hgb 13.9, Hct 43.9, MCV 93.6, MCH 29.6, MCHC 31.7 L, RDW Std Deviation 46.5 H, RDW Coeff of Isabel 13.4, Plt Count 191, MPV 11.2, Immature Gran % (Auto) 0.400, Neut % (Auto) 66.1, Lymph % (Auto) 20.4, Rosebud % (Auto) 10.0, Eos % (Auto) 2.8, Baso % (Auto) 0.3, Absolute Neuts (auto) 4.8, Absolute Lymphs (auto) 1.48, Nucleated RBC % 0 06/04/20 07:11: Sodium 142, Potassium 3.8, Chloride 110 H, Carbon Dioxide 28.0, Anion Gap 4 L, BUN 21 H, Creatinine 1.02, Estim Creat Clear Calc 93.44, Est GFR (MDRD) Af Amer 101, Est GFR (MDRD) Non-Af 84, BUN/Creatinine Ratio 20.6 H, Glucose 104, Calcium 8.3 L Current Medications Atenolol (Tenormin (Beta Ru)) 25 mg PO X1 ONE Stop: 06/04/20 10:01 Atorvastatin Calcium (Lipitor) 10 mg PO QODAY@2200 [facility] Last Admin: 06/03/20 23:17 Dose: 10 mg Documented by: Ketorolac Tromethamine (Toradol (Bkc)) 30 mg IV Q6 [facility] Stop: 06/08/20 19:09 Last Admin: 06/04/20 04:10 Dose: 30 mg Documented by: Nutritional Formula (Lactose Free) (Ensure Enlive) 120 ml PO 4X/DAY [facility] Last Admin: 06/04/20 09:53 Dose: Not Given Documented by: Ondansetron HCl (Zofran) 4 mg IV Q8H PRN PRN PRN Reason: NAUSEA/VOMITING Pantoprazole Sodium (Protonix) 20 mg PO DAILY [facility] Last Admin: 06/04/20 10:01 Dose: 20 mg Documented by: Paroxetine HCl (Paxil) 20 mg PO DAILY [facility] Sodium Chloride () 10 - 40 ml IV UD PRN PRN Reason: SALINE FLUSH Last Admin: 06/03/20 20:12 Dose: 10 ml Documented by: Discharge Activity: May Not Drive - while having headache. F/U PCP before resuming driving Weight Bearing Status: Weight bearing as tolerated Call your doctor if you observe: Fever of 101 or Higher, Coldness, Increased Pain, Numbness or Tingling, Change in Color, Inability to urinate, Inability to have a bowel movement, Shortness of breath, Dizziness, Fainting spells, Swelling in the ankles, Chest pain, Prolonged hiccoughing, Increased palpitations (irregular heartbeat), Calf discomfort, Uncontrolled pain Home Medications: Medications to take at Discharge Omeprazole Magnesium [Prilosec Otc] 20 mg PO DAILY 06/03/20 Paroxetine [Paxil] 20 mg PO DAILY 06/03/20 Rosuvastatin Calcium [Crestor] 5 mg PO QODAY 06/03/20 Atenolol [Tenormin] 25 mg PO QHS #0 06/04/20 Primary Care Physician: Stephanie Agosto DO [Primary Care Provider] - Please follow up with your Primary Care Physician in: in 2 weeks Medical Necessity - Tobacco Use Smoking Status: Current every day smoker Tobacco Use: Cigarettes Meaningful Use Info Meaningful Use Diagnoses (Choose all that apply): None applicable OBSV E&M: 42069 Observation care discharge
[2020-06-04 14:07] VITALS: BP 117/73; PULSE 63; RESP 18; TEMP 36.6; O2SAT 97
== END 2020-06-04 10:02 | disposition home or self-care (01) ==
LOC: ED 17:52 → PCU 18:45
PROVIDERS: Admitting Provider Student in an Organized Health Care Education/Training Program; Emergency Provider Emergency Medicine; PCP Internal Medicine; Visit Provider Internal Medicine
DX: R55 Syncope and collapse (principal); E78.5 Hyperlipidemia, unspecified; F32.9 Major depressive disorder, single episode, unspecified; Z79.899 Other long term (current) drug therapy; R00.1 Bradycardia, unspecified; G43.909 Migraine, unspecified, not intractable, without status migrainosus; I10 Essential (primary) hypertension; F17.210 Nicotine dependence, cigarettes, uncomplicated
CPT/HCPCS: 36415; 70450; 71045; 80048; 83735; 84484; 85025; 93005; 93306; 96361; 96374; 96376; 99218; 99283; 99406; J7030; A4216; G0378

== ENCOUNTER 2020-06-08 10:18 | Outpatient (RCR) | payer OTHER, SELFPAY ==
[2020-06-03 18:57] VITALS: BMI 28.7
--- NOTE | 2020-06-08 10:56 | HP.PTEVAL_ITS ---
Patient's Visit Information MARIBEL LAO is a 45 year old M referred to Physical Therapy by FAUSTINA Fernandez with a diagnosis of syncope. Date of Evaluation: 06/08/20 Physical Therapist: Nathanael Macdonald, DPT, OCS, CSCS - Visit Plan Plan: No skilled PT required at this time. Script for Marcos maneuver but no positive tests for positional or vestibular dysfunction today.Educated pat on this and recommend continue with current line of testing from doctor and f/u with her as needed. - Subjective Gets CORTEZ and eyes flicker when doctor turns head. Was blacking out last week which is what took him to doctor. Blackouts last a couple seconds and he has fallen to the ground. It happened when he was in her office adn they called squad. Checked heart in hospital and catscan and did not see any problems in head or heart. Will go to [place] Saturday for eeg for possible seizures. This started out of nowhere last week for no apparent reason. Was on BP pill for ten years for CORTEZ and took off the other day and is feeling better. CORTEZ have not returned adn he actally feels better since being off atenolol since Saturday. Sleep is OK. Employed as automotive mechanical engineer/truckdriver. She took him off work until after eeg. Has a farm at home and he is avoiding this as will not let him out to the barn. Basic aDLs are OK. Feels pretty normal when not passing out. no spinning, no regular numbness in legs, sometimes gets it if sits too long. - Objective Walks normal with good balance, no problem with vOR walking. Steps reciprocal without rail. Cervical aROM WFL and painfree. UE aROM WFL. - B hallpike siobhan, - roll test. MSQ is negative for all positions, no dizzyness. Oculomotor is unremarkable: nonystagmus with gaze or head shake. - skew eye deviation. - ocular tilt. Pursuit and saccades are normal. head thrust normal. VOR is normal horiz and vertical and asymptomatic. - Balance Scores Functional Gait Assessment Score: 30 % Disability: 0 - Rehabilitation Potential Physical Therapy Diagnosis: normal vestibular exam - Anticipated Interventions Thank you for the opportunity to evaluate your patient. For Medicare and Medicare HMO plans, please review the plan of care and approve it. It will need to be FAXED BACK to us at [phone] for Medicare purposes. For Medicare only, by signing this I certify the plan of care. Please let me know if there are questions or concerns regarding this plan of care. Physician Signature: Date:
== END 2020-06-08 19:00 | disposition home or self-care (01) ==
LOC: PT 10:18
PROVIDERS: PCP Internal Medicine; Referring Provider Nurse Practitioner; Visit Provider Nurse Practitioner
DX: R42 Dizziness and giddiness (principal); R55 Syncope and collapse
CPT/HCPCS: 97161

== ENCOUNTER → 2020-08-25 10:47 | Outpatient (CLI) | payer OTHER, SELFPAY ==
[2020-06-03 18:57] VITALS: BMI 28.7
== END ==
PROVIDERS: PCP Nurse Practitioner; Referring Provider Internal Medicine Gastroenterology; Visit Provider Internal Medicine Gastroenterology
DX: Z11.59 Encounter for screening for other viral diseases (principal)
CPT/HCPCS: 87635; C9803; U0003

== ENCOUNTER → 2020-11-10 11:05 | Outpatient (CLI) | payer OTHER, SELFPAY ==
[2020-11-10 10:21] VITALS: BMI 29.2
--- NOTE | 2020-11-10 11:07 | RAD_ITS ---
STUDY: X-RAY - PELVIS AND LEFT HIP REASON FOR EXAM: Male, 45 years old. Left hip pain TECHNIQUE: 3 views of the pelvis and hip. COMPARISON: None. FINDINGS: There is a non-specific bowel gas pattern. Normal visualized soft tissue structures. Normal bilateral iliac wings, sacroiliac joints and visualized sacrum. Normal bilateral superior and inferior pubic rami. Normal pubic symphysis. Normal bilateral ischial tuberosities. Normal visualized femoral head. Normal acetabulum. There is mild articular joint space narrowing of the hip. Mild degree of the right hip joint narrowing as well. Calcific densities are seen overlying the greater trochanter of the proximal right femur suggestive of a calcific bursitis. RAD/HIP, UNI W/ Pelvis 2-3 Views IMPRESSION: Mild degree of joint space narrowing involving the left hip joint. Electronically Signed: Adama Adam MD at 15:18 EST , Service support ,
--- NOTE | 2020-11-10 11:10 | RAD_ITS ---
STUDY: X-RAY - LUMBAR SPINE REASON FOR EXAM: Male, 45 years old. Low back pain TECHNIQUE: 2 view(s) of the lumbar spine were obtained. COMPARISON: None FINDINGS: Normal lumbar lordosis. There is no substantial scoliosis. There is a normal alignment of the vertebrae. Mild degree of anterior spondylosis at the L3-L4 and L4-L5 levels. Normal disc space heights. The soft tissue structures are unremarkable. RAD/Lumbar Spine 2 or 3 Views IMPRESSION: Degenerative changes of the spine, as detailed above. Electronically Signed: Adama Adam MD at 15:19 EST , Service support ,
== END ==
LOC: RAD 11:07
PROVIDERS: PCP Nurse Practitioner; Referring Provider Psychiatry & Neurology Neurology; Visit Provider Psychiatry & Neurology Neurology
DX: M25.552 Pain in left hip (principal); M54.5 Low back pain
CPT/HCPCS: 72100; 73502

== ENCOUNTER → 2020-11-15 06:22 | Outpatient (CLI) | payer OTHER, SELFPAY ==
[2020-11-10 10:21] VITALS: BMI 29.2
--- NOTE | 2020-11-15 06:26 | MRI_ITS ---
STUDY: MRI BRAIN WITH AND WITHOUT CONTRAST REASON FOR EXAM: Male, 45 years old. Migraine TECHNIQUE: Standardized multiplanar fat and water weighted pulse sequences were obtained. IV dotarem 18ml was administered for the contrast portion of the examination. COMPARISON: 06/03/2020 FINDINGS: Normal size of the ventricles and extra-axial spaces for the patient''s age. Normal white matter tracts of the supratentorial brain. Normal bilateral basal ganglia. Normal thalami. There is no extra-axial fluid accumulation. Normal flow voids within the major intracranial circulation suggesting patency by spin echo criteria. Normal venous enhancement. There is no enhancing intra-axial or extra-axial abnormality. Normal sella turcica, pituitary gland, infundibular stalk, optic chiasm and hypothalamus. Normal tectal plate and pineal gland. Normal midbrain, joey and medulla. Normal cerebellum. Normal basal cisterns. Normal bilateral temporal bones. Normal bilateral internal auditory canals. No demonstrated orbital abnormality, within the constraints of a routine brain study. Normal visualized paranasal sinuses. Normal calvarium and skull base. Normal visualized soft tissue structures. Normal visualized upper cervical spine. MRI/Brain W/WO Contrast IMPRESSION: Normal unenhanced and enhanced MRI of the brain. Electronically Signed: Renetta Reynolds MD at 11:49 EST Tel , Service support ,
== END ==
LOC: MRI 06:26
PROVIDERS: PCP Nurse Practitioner; Referring Provider Psychiatry & Neurology Neurology; Visit Provider Psychiatry & Neurology Neurology
DX: G40.909 Epilepsy, unspecified, not intractable, without status epilepticus (principal)
CPT/HCPCS: 70553; A9575

== ENCOUNTER 2020-11-17 07:15 | Emergency (ER) | payer OTHER, SELFPAY ==
[2020-11-10 10:21] VITALS: BMI 29.2
[2020-11-17 07:16] VITALS: BP 151/60; PULSE 61; RESP 15; TEMP 36.4; O2SAT 97; BMI 27.8
--- NOTE | 2020-11-17 07:38 | ED.DCSUM_ITS ---
History of Present Illness Chief Complaint: Anxiety Narrative: 45-year-old male presenting with weakness which is generalized, lightheadedness. Patient states that this happened twice this morning. He felt like after he went out to the barn he was unable to make it back. He stated he broke out into a cold sweat and felt lightheaded. He denied any chest pain associated with events or shortness of breath. Patient states he has been being evaluated for this on an outpatient basis and was seen by Dr. Barclay and sent for CT abdomen pelvis on Saturday and he has not received the results back. Patient also sees Dr. Martin and had an MRI on Saturday which she does not know the results of. Patient does relate recent history of chest pains which feel like a dull ache on the right and left side of his chest which last about 10 minutes. He states he has to sit down. He is not diaphoretic, dizzy with these episodes. He denies any cardiac history. No history of DVT/PE. - Past Medical History (1) Anxiety and depression Status: Chronic (2) Essential hypertension Status: Chronic (3) Hypercholesteremia Status: Chronic (4) Syncopal episodes Status: Chronic Past Medical History - Allergies and Home Meds Allergies/Adverse Reactions: Allergies No Known Allergies Allergy (Verified 11/17/20 07:19) Primary Care Physician: Amy Ozuna NP, TESTING ENGINEER-C [Primary Care Provider] - Prior records reviewed: Yes Past Medical History: - - Reviewed in problem list Lives: Spouse/ Significant Other Smoking Status: Current every day smoker Alcohol: None Drugs: None - Family History Maternal Family History: Family History (Last Updated 11/10/20 @ 10:49 by Pretty William) Grandfather Diabetes Anxiety Hypertension Father Heart disease Rheumatoid arthritis CVA (cerebral vascular accident) Arthritis Myocardial infarction Mother Scoliosis Anxiety Depression Osteoporosis Grandmother Arthritis Brother Cancer Aunt Cancer Liver disease Uncle Heart disease Family History: Reports: No pertinent history Paternal Family History: Family History (Last Updated 11/10/20 @ 10:49 by Pretty William) Grandfather Diabetes Anxiety Hypertension Father Heart disease Rheumatoid arthritis CVA (cerebral vascular accident) Arthritis Myocardial infarction Mother Scoliosis Anxiety Depression Osteoporosis Grandmother Arthritis Brother Cancer Aunt Cancer Liver disease Uncle Heart disease Family History: Reports: No pertinent history Review of Systems General: Reports: Malaise. Denies: Chills, Fever Eyes: Denies: Visual changes - bilaterally, Diplopia ENT: Denies: Rhinorrhea, Sore throat Cardiovascular: Reports: Chest pain, - - Near syncopal episodes. Denies: Palpitations, Heart racing Respiratory: Denies: Dyspnea, Cough, Sputum Gastrointestinal: Reports: Abdominal pain. Denies: Nausea, Vomiting Genitourinary: Denies: Dysuria, Hematuria Musculoskeletal: Denies: Myalgias, Arthralgias Skin: Denies: Rash, Abscess Neurological: Reports: Headache. Denies: Weakness, Parasthesia, Numbness Psych: Reports: Anxiety. Denies: Depression, Suicidal thoughts, Suicidal ideations Physical Exam Vital Signs/Narrative: Vital Signs Temp Pulse Resp BP Pulse Ox 11/17/20 07:16 97.5 F L 61 15 151/60 H 97 Inital Vital Signs reviewed: Yes General: Well nourished, No Acute Distress Head: Normocephalic, Atraumatic Eyes: Perrl, EOMI ENT: Moist mucous membranes, No rhinorrhea Cardiovascular: Regular rate, Regular rhythm Respiratory: No distress, CTA bilaterally, Chest nontender Abdomen: Soft, Nontender, Nondistended Extremities: Nontender, No edema Skin: Normal color, No rash. Negative for: Cyanosis, Diaphoresis, Jaundice Neurological: Alert, Oriented x3, Cranial nerves II-XII grossly intact Psychological: Normal affect, Normal Mood Diagnostic/Tx/Re-eval Clinical Impression(s) from Imaging Studies Chest X-Ray 11/17/20 07:48 IMPRESSION: Normal x-ray examination of the chest and unchanged when compared to 06/03/2020. Electronically Signed: Neptali Flores MD at 8:16 EST , Service support , Laboratory Data 11/17/20 11/17/20 11/17/20 07:40 07:40 07:40 WBC 5.6 RBC 5.16 Hgb 15.4 Hct 47.8 MCV 92.6 MCH 29.8 MCHC 32.2 RDW Std Deviation 43.3 RDW Coeff of Isabel 12.7 Plt Count 230 MPV 10.9 Immature Gran % (Auto) 0.200 Neut % (Auto) 64.0 Lymph % (Auto) 23.6 Wright % (Auto) 7.3 Eos % (Auto) 4.4 Baso % (Auto) 0.5 Absolute Neuts (auto) 3.6 Absolute Lymphs (auto) 1.33 Nucleated RBC % 0 D-Dimer Quant (PE/DVT) <= 0.27 Sodium 140 Potassium 4.0 Chloride 105 Carbon Dioxide 31.0 Anion Gap 4 L BUN 25 H Creatinine 0.92 Estim Creat Clear Calc 103.59 Est GFR (MDRD) Af Amer 113 Est GFR (MDRD) Non-Af 93 BUN/Creatinine Ratio 27.0 H Glucose 132 H Calcium 8.9 Troponin I < 0.015 TSH 1.86 - Medical Decision Making 45-year-old male presenting with near syncopal episodes. He states this has been happening since he has been on significant dose of fluoxetine. This does appear to be a side effect. Patient has not had ayush syncope. He does state that he has had near syncopal episodes in the past that are unrelated. Patient had lab work drawn which was unremarkable with exception of slight dehydration however patient does not have acute kidney injury. CBC is unremarkable. Troponin is negative. TSH is within normal limits. Orthostatic vitals are negative as well. Patient's states that she called his primary physician who will call them back and determine what medication changes to make. Patient stable for discharge at this time. Impression: 1. Near syncope ED Disposition - Plan for ED Patient: Disposition: Home or Assisted Living Instructions: ED Near-Fainting, Uncertain Cause Referrals: Amy Ozuna NP, TESTING ENGINEER-C [Primary Care Provider] -
--- NOTE | 2020-11-17 07:38 | EKG12_ITS ---
Test Reason : Blood Pressure : / mmHG Vent. Rate : 058 BPM Atrial Rate : 058 BPM P-R Int : 190 ms QRS Dur : 104 ms QT Int : 416 ms P-R-T Axes : 027 028 025 degrees QTc Int : 408 ms Sinus bradycardia Otherwise normal ECG Confirmed by LUI AMAYA, SURAJ ([id number]), news video editor ANGELO LERMA ([id number]) on 11/21/2020 11:01:54 A M Referred By: VERNELL Confirmed By:GINI POE MD
--- NOTE | 2020-11-17 07:48 | RAD_ITS ---
STUDY: X-RAY CHEST REASON FOR EXAM: Male, 45 years old. Chest pain TECHNIQUE: AP upright portable view. COMPARISON: 06/03/2020. FINDINGS: The lungs are clear and expanded. There is no demonstrated pleural abnormality. Normal size heart. Normal mediastinum and maverick. Normal visualized pulmonary arteries. Normal visualized aortic arch and descending thoracic aorta. Normal visualized thoracic spine. Normal visualized ribs, clavicles, and shoulders. There is no demonstrated abnormality of the visualized soft tissue structures of the upper abdomen. RAD/Chest 1 View (Portable) IMPRESSION: Normal x-ray examination of the chest and unchanged when compared to 06/03/2020. Electronically Signed: Neptali Flores MD at 8:16 EST , Service support ,
[2020-11-17 07:51] LABS: Absolute Lymphocyte Count 1.33 X10^3/uL (0.83-4.51); Absolute Neutrophil Count 3.6 X10^3/uL (2.0-7.7); Basophil# 0.03 X10^3/uL; Basophil% 0.5 % (0-1); Eosinophil# 0.25 X10^3/uL; Eosinophils% 4.4 % (0-5); Hematocrit 47.8 % (40-54); Hemoglobin 15.4 g/dL (13.0-16.5); Lymphocyte # 1.33 X10^3/ul (4.0); Lymphocyte % 23.6 % (19-41); Mean Corp Hgb Conc 32.2 g/dL (32-36); Mean Corpuscular Hgb 29.8 pg (27.0-32.0); Mean Corpuscular Volume 92.6 fL (80-94); Mean Platelet Vol. 10.9 fl (6.2-12.0); Monocyte# 0.41 X10^3/uL; Monocyte% 7.3 % (0-10); NRBC Flagged by Analyzer 0 % (0-5); Platelet Count 230 K/mm3 (150-450); RBC Distribution Width CV 12.7 % (11.6-14.6); RBC Distribution Width SD 43.3 fl (35.1-43.9); Red Blood Count 5.16 M/mm3 (4.6-6.2); White Blood Count 5.6 K/mm3 (4.4-11.0)
[2020-11-17 08:13] LABS: D-Dimer Quantitative (DVT/PE) <= 0.27 FEU/ug/m (0.27-0.49)
[2020-11-17 08:15] LABS: Anion Gap 4 (5-15); BUN 25 mg/dL (7-18); Calcium,Total 8.9 mg/dL (8.5-10.1); Chloride 105 mmol/L (98-107); Creatinine, Serum 0.92 mg/dL (0.70-1.30); EST Glomerular Filtration Rate 93 mL/min (>60); Est Glom Filt Rate - Afr Amer 113 mL/min (>60); Estimated Creatinine Clearance 103.59 ml/min; Glucose 132 mg/dL (74-106); Sodium Level 140 mmol/L (136-145); Thyroid Stim Hormone (TSH) 1.86 uIU/mL (0.358-3.74)
[2020-11-17 09:15] VITALS: BP 120/72; BP 128/92; BP 131/80; PULSE 57; PULSE 72; PULSE 81
[2020-11-17 11:17] VITALS: BP 147/90; PULSE 57; RESP 18; O2SAT 93
== END 2020-11-17 11:18 | disposition home or self-care (01) ==
PROVIDERS: Emergency Provider Student in an Organized Health Care Education/Training Program; PCP Nurse Practitioner
DX: R55 Syncope and collapse (principal); F17.200 Nicotine dependence, unspecified, uncomplicated
CPT/HCPCS: 71045; 80048; 84443; 84484; 85025; 85379; 93005; 99285; A4216

== ENCOUNTER → 2020-11-24 12:27 | Outpatient (CLI) | payer OTHER, SELFPAY ==
[2020-11-17 07:16] VITALS: BMI 27.8
== END ==
LOC: PSN 12:28
PROVIDERS: PCP Nurse Practitioner; Visit Provider Nurse Practitioner
DX: I95.9 Hypotension, unspecified (principal)
CPT/HCPCS: 93225; 93226

== ENCOUNTER → 2021-01-13 15:23 | Outpatient (CLI) | payer OTHER, SELFPAY ==
[2020-12-12 15:54] VITALS: BMI 29.2
--- NOTE | 2021-01-13 15:25 | US_ITS ---
STUDY: SUPERFICIAL ULTRASOUND - RIGHT CHEST REASON FOR EXAM: Male, 45 years old. LUMP IN CHEST TECHNIQUE: A superficial ultrasound was performed with real-time and static ortega-scale imaging. COMPARISON: Portable chest exam of 11/17/[address] of 08/01/2018 FINDINGS: There is an approximate 9 mm echogenic interface with posterior acoustical shadowing between ribs lateral to the sternum. US/Chest IMPRESSION: Rounded protrusion of the echogenic interface with posterior acoustical shadowing between ribs lateral to the sternum. Insufficient visibility of the substance of the lesion for definite identification possibly secondary to superficial ossification or air in the lesion. CT should be more helpful. Electronically Signed: Ana Maria Hu MD at 16:13 EDT , Service support ,
== END ==
PROVIDERS: PCP Internal Medicine; Referring Provider Internal Medicine; Visit Provider Internal Medicine
DX: R22.2 Localized swelling, mass and lump, trunk (principal)
CPT/HCPCS: 76604

== ENCOUNTER → 2021-01-23 08:26 | Outpatient (CLI) | payer OTHER, SELFPAY ==
[2020-12-12 15:54] VITALS: BMI 29.2
--- NOTE | 2021-01-23 08:32 | CT_ITS ---
STUDY: CT CHEST WITH CONTRAST REASON FOR EXAM: Male, 45 years old. Chest pain/pressure RADIATION DOSAGE (If Supplied By Facility): CTDIvol = ( 15.11 ) mGy, DLP = ( 548.69 ) mGycm TECHNIQUE: Transaxial imaging was performed following intravenous administration of IV 100mL Isovue-300. Individualized dose optimization techniques were used for this CT. COMPARISON: None. FINDINGS: The lungs are normal. There is no demonstrated pleural abnormality. Normal heart and pericardium. Normal mediastinum. Normal hilar regions. Normal enhanced pulmonary arteries. Normal aorta arch and descending thoracic aorta. Normal osseous structures. There is no demonstrated abnormality of the visualized upper abdomen. CT/Chest WITH Contrast IMPRESSION: Normal enhanced CT Chest examination. Electronically Signed: Scar Brothers MD at 10:22 EDT , Service support ,
== END ==
PROVIDERS: PCP Internal Medicine; Referring Provider Internal Medicine; Visit Provider Internal Medicine
DX: R93.89 Abnormal findings on diagnostic imaging of other specified body structures (principal)
CPT/HCPCS: 71260; Q9967

== ENCOUNTER → 2021-02-21 14:43 | Outpatient (CLI) | payer OTHER, SELFPAY ==
[2020-12-12 15:54] VITALS: BMI 29.2
[2021-02-21 18:21] LABS: Hemoglobin A1c 5.5 % (3.8-5.6)
== END ==
PROVIDERS: PCP Internal Medicine; Referring Provider Nurse Practitioner Family; Visit Provider Nurse Practitioner Family
DX: R73.9 Hyperglycemia, unspecified (principal)
CPT/HCPCS: 36415; 83036

== ENCOUNTER → 2023-10-15 | Outpatient (CLI) | payer OTHER, SELFPAY ==
--- NOTE | 2023-10-15 14:40 | RAD_ITS ---
STUDY: X-RAY CHEST REASON FOR EXAM: Male, 48 years old. STAT-increased shortness of breath TECHNIQUE: PA and lateral views of the chest. COMPARISON: Comparison is made with prior study dated November 01, 2022. FINDINGS: The lungs are clear and expanded. There is no demonstrated pleural abnormality. Normal size heart. Normal mediastinum and maverick. Normal visualized pulmonary arteries. Normal visualized aortic arch and descending thoracic aorta. Normal visualized thoracic spine. Normal visualized ribs, clavicles, and shoulders. There is no demonstrated abnormality of the visualized soft tissue structures of the upper abdomen. RAD/Chest PA and Lateral IMPRESSION: Normal x-ray examination of the chest. Electronically Signed: Adama Adam MD at 15:28 EST ,
== END | disposition home or self-care (01) ==
PROVIDERS: PCP Internal Medicine; Referring Provider Nurse Practitioner Family; Visit Provider Nurse Practitioner Family
DX: R06.02 Shortness of breath (principal)
CPT/HCPCS: 71046

== ENCOUNTER → 2023-10-16 | Outpatient (CLI) | payer OTHER, SELFPAY ==
[2023-10-16 12:35] LABS: Erythrocyte Sedimentation Rate 11 mm/hr (0-20)
[2023-10-16 12:37] LABS: Absolute Neutrophil Count 4.8 X10^3/uL (2.0-7.7); Basophil# 0.05 X10^3/uL; Basophil% 0.6 % (0-1); Eosinophils% 2.5 % (0-5); Hematocrit 48.2 % (40-54); Hemoglobin 15.4 g/dL (13.0-16.5); Lymphocyte % 27.6 % (19-41); Mean Corpuscular Hgb 29.7 pg (27.0-32.0); Mean Corpuscular Volume 92.9 fL (80-94); Mean Platelet Vol. 10.5 fl (6.2-12.0); Monocyte% 8.8 % (0-10); NRBC Flagged by Analyzer 0 % (0-5); Neutrophil # 4.78 X10^3/uL (2.7-7.7); Platelet Count 341 K/mm3 (150-450); RBC Distribution Width CV 12.7 % (11.6-14.6); RBC Distribution Width SD 43.1 fl (35.1-43.9); Red Blood Count 5.19 M/mm3 (4.6-6.2)
[2023-10-16 12:48] LABS: D-Dimer Quantitative (DVT/PE) < 0.27 FEU/ug/m (0.27-0.49)
[2023-10-16 12:52] LABS: AST(SGOT) 16 U/L (15-37); Alanine Aminotransfer ALT/SGPT 52 U/L (16-61); Albumin, Serum 3.9 g/dL (3.2-5.0); Alkaline Phosphatase 101 U/L (45-117); Anion Gap 2 (5-15); BUN 22 mg/dL (7-18); BUN/Creat Ratio 25.2 RATIO (10-20); CRP 3.02 mg/L (0.0-3.0); Calcium,Total 9.4 mg/dL (8.5-10.1); Chloride 100 mmol/L (98-107); Creatinine, Serum 0.87 mg/dL (0.70-1.30); EST Glomerular Filtration Rate 99 mL/min (>60); Est Glom Filt Rate - Afr Amer 119 mL/min (>60); Globulin 3.8 g/dL (2.2-4.2); Glucose 94 mg/dL (74-106); Potassium 4.1 mmol/L (3.5-5.1); Protein, Total 7.7 g/dL (6.4-8.2); Sodium Level 134 mmol/L (136-145); Troponin-I HS 8 pg/mL (3.0-78.0)
== END | disposition home or self-care (01) ==
LOC: LABSPEC 12:12
PROVIDERS: PCP Internal Medicine; Referring Provider Nurse Practitioner Family; Visit Provider Nurse Practitioner Family
DX: R06.02 Shortness of breath (principal)
CPT/HCPCS: 80053; 84484; 85025; 85379; 85652; 86140

== ENCOUNTER → 2024-11-19 | Outpatient (CLI) | payer OTHER, SELFPAY ==
--- NOTE | 2024-11-19 13:55 | FORE_PTH ---
PATIENT: MARIBEL LAO LOC: [facility] U#:[id number] AGE/SX: 49/M ROOM: RE11/19/[address]: Dr. Alexander Boogie MD : 1975 BED: DIS: 11/19/2024 SPEC #: [id number] RECD: 11/20/24 09:18 STATUS: LUZ REDov #: [id number] ISA: 11/19/24 13:[address]: Alexander Boogie DEPT: SURGICAL PATHOLOGY RECD BY: Sukhdev Woods ENTERED: 11/20/24 09:18 SP TYPE: FOREIGN B TOMI DR: Dr. Stephanie Agosto, Tissues: FOREIGN BODY Procedures: Surgery Specimen Level I HEADER OPERATION: I&D left palm PRE-OP DIAGNOSIS: Left palm TISSUE SUBMITTED: A- Left palm foreign body GROSS DIAGNOSIS FOREIGN BODY, LEFT HAND WOUND, REMOVAL: * Foreign body confirmed (gross examination only). MICROSCOPIC DESCRIPTION Slides are reviewed. GROSS DESCRIPTION Received in fixative is one container labeled with the patient's name and designated left hand wound foreign body. The specimen consists of what appears to be a splinter of brown wood measuring 1.6 x 0.3 x 0.1 cm. Soft tissue is not present and nothing is submitted for microscopic examination. This is for gross diagnosis only. CPT: 67360
== END | disposition home or self-care (01) ==
LOC: LABSPEC 14:41
PROVIDERS: PCP Internal Medicine; Referring Provider Surgery Plastic and Reconstructive Surgery; Visit Provider Surgery Plastic and Reconstructive Surgery
DX: S60.552A Superficial foreign body of left hand, initial encounter (principal); X58.XXXA Exposure to other specified factors, initial encounter
CPT/HCPCS: 87070; 87075; 87077; 87186; 87205; 88300